=== PATIENT | female | born 1985 | race Two or more races ===

== ENCOUNTER 2020-09-11 10:16 | Outpatient (CLI) | payer OTHER | END 2020-09-11 10:25 | disposition home or self-care (01) | LOC: MRI 10:16 | PROVIDERS: ATTEND Obstetrics & Gynecology | DX: C54.1 Malignant neoplasm of endometrium (principal) | CPT/HCPCS: 72197 ==

== ENCOUNTER 2020-09-14 10:50 | Outpatient (CLI) | payer OTHER | END 2020-09-14 11:15 | disposition home or self-care (01) | LOC: TOM 10:50 | DX: K42.9 Umbilical hernia without obstruction or gangrene (principal); C54.1 Malignant neoplasm of endometrium ==

== ENCOUNTER 2024-12-17 15:37 | Outpatient (CLI) | payer OTHER | END 2024-12-17 15:45 | disposition home or self-care (01) | LOC: RAD 15:37 | DX: J06.9 Acute upper respiratory infection, unspecified (principal); R05.9 Cough, unspecified ==